=== PATIENT | female | born 1985 | race Caucasian/White ===

== ENCOUNTER 2022-06-04 13:02 | Outpatient (CLI) | payer OTHER, SELFPAY ==
[2022-06-04 13:41] LABS: Yeast Yeast Seen (None Seen)
[2022-06-04 13:42] LABS: Clue Cells >20% Clue Cells Seen (None Seen); Trichomonas No Trichomonas Seen (None Seen)
[2022-06-04 17:29] LABS: Chlamydia DNA Amplified* NOT DETECTED (No Detected); GC DNA Amplified* NOT DETECTED (No Detected)
== END 2022-06-04 13:03 | disposition home or self-care (01) ==
PROVIDERS: PCP Physician Assistant; Visit Provider Registered Nurse
DX: R10.2 Pelvic and perineal pain (principal)
CPT/HCPCS: 0353U; 82378; 86301; 86304; 87086; 87210

== ENCOUNTER 2022-06-04 14:02 | Outpatient (CLI) | payer OTHER, SELFPAY ==
--- NOTE | 2022-06-04 14:00 | CRLHL7_ITS ---
For Patients: As a result of the Century Cures Act, medical imaging exams and procedure reports are released immediately into your electronic medical record. You may view this report before your referring provider. If you have questions, please contact your health care provider. CLINICAL HISTORY: Pelvic pain TECHNIQUE: Real time, singh scale images were acquired of the pelvis using a transabdominal and transvaginal approach. Color Doppler analysis was performed of the ovaries. FINDINGS: The uterus measures 8.7 x 5.2 x 4.7 centimeters endometrial measures 9 millimeters. Right ovary is not seen. Complex left adnexal cystic structure measuring 8.8 x 7.7 x 8.5 centimeters. Blood flow is present. Hypoechoic complex cystic lesion in the right pelvis measuring 4.6 x 3.5 centimeters. IMPRESSION: 1. Large left adnexal complex lesion measuring 8.8 x 7.7 x 8.5 centimeters ovarian tissues not clearly seen. There is normal blood flow present. The right ovary also is not confidently seen. There is a complex hypo hypoechoic lesion in the right adnexa that measures 4.6 x 3.4 x 4.2 centimeters. There is no free fluid. Findings worrisome for possible malignancy. Gynecology consultation is recommended. Dictated by Airam Morocho MD @ 06/04/2022 3:15:36 PM (Electronically Signed)
== END 2022-06-04 14:03 | disposition home or self-care (01) ==
LOC: US 14:02
PROVIDERS: PCP Physician Assistant; Visit Provider Registered Nurse
DX: R10.2 Pelvic and perineal pain (principal); R93.89 Abnormal findings on diagnostic imaging of other specified body structures
CPT/HCPCS: 76830; 76856; 93976

== ENCOUNTER 2022-06-06 15:58 | Outpatient (CLI) | payer OTHER, SELFPAY ==
--- NOTE | 2022-06-06 16:15 | CRLHL7_ITS ---
For Patients: As a result of the Century Cures Act, medical imaging exams and procedure reports are released immediately into your electronic medical record. You may view this report before your referring provider. If you have questions, please contact your health care provider. INDICATION: Complex right ovarian cyst COMPARISON: Ultrasound dated 06/04/2022 TECHNIQUE: MRI of the pelvis, multisequence, multiphasic, without with contrast. 15 cc of Dotrarem administered intravenously. FINDINGS: There is a large left adnexal mass, which measures approximately 8.7 x 7.0 cm, with areas of T2 hyperintensity, however also other areas of T1 hyperintensity that does not suppress on fat saturated images. This most likely represents a large endometrioma. No nodular enhancing components within this lesion. There is mass effect onto the adjacent uterus. There are small foci within the rectovaginal pouch (see image 17, series 6) which may suggest associated endometriosis. The right adnexal mass, more anteriorly measures 4.6 x 4.9 cm. This mass does demonstrate areas of fat suppression, which raises possibility this represents a dermoid rather than an endometrioma. Bone marrow signal is normal. No significant free fluid in the pelvis. The urinary bladder appears unremarkable. No obvious abnormality involving the cervix or vagina. IMPRESSION: 1. Large left adnexal mass measuring 8.7 x 7.0 cm most likely represents a large endometrioma. 2. A smaller right adnexal mass measuring 4.6 x 4.9 cm more likely represents a dermoid rather than an endometrioma. 3. Possible endometriosis evidence by small high-signal intensity T1 foci within the rectovaginal pouch. Dictated by Kermit Rouse MD @ 06/07/2022 9:11:51 PM (Electronically Signed)
== END 2022-06-06 15:59 | disposition home or self-care (01) ==
LOC: MRI 15:59
PROVIDERS: PCP Physician Assistant; Visit Provider Obstetrics & Gynecology
DX: N83.291 Other ovarian cyst, right side (principal); R19.09 Other intra-abdominal and pelvic swelling, mass and lump
CPT/HCPCS: 72197; A9575

== ENCOUNTER 2022-09-16 10:52 | Outpatient (CLI) | payer OTHER, SELFPAY | END 2022-09-16 10:53 | disposition home or self-care (01) | LOC: NFLDREF 09-17 11:14 | PROVIDERS: PCP Physician Assistant; Referring Provider Physician Assistant; Visit Provider Obstetrics & Gynecology | DX: E03.9 Hypothyroidism, unspecified (principal) | CPT/HCPCS: 84439; 84443 ==

== ENCOUNTER 2023-09-03 08:17 | Outpatient (CLI) | payer OTHER, SELFPAY ==
--- OUTSIDE RECORDS SUMMARY | 2023-09-05 09:28 | XMS_ITS | Clinical Summary ---
Author Organization [email or web address] Address [place], [place] [address] Care Team Providers Care Tack Puller Machine Name Role Phone Taryn Wasserman Primary Care Provider [phone] Allergies Active Allergy Reactions Criticality Noted Date Comments Tuberculin Ppd Rash 09/15/2015 History of positive PPD Vancomycin Rash Medium 05/22/2009 Bit by sunday diamond spider Medications Medication Sig Dispensed Refills Start Date End Date Status estradiol 0.1 mg/24 hr SEMIWEEKLY patch Apply 1 Patch on dry, clean, hairless skin. 02/11/2023 Active progesterone micronized (PROMETRIUM) 100 mg capsule Take 100 mg by mouth. 03/17/2023 Active topiramate (TOPAMAX) 25 mg tabletIndications:Bi nge eating Take 25 mg at bedtime for 2 weeks, then increase to 50 mg at bedtime. 180 Tablet 3 04/04/2023 Active levothyroxine (SYNTHROID) 137 mcg tabletIndications:Hy pothyroidism, unspecified type Take 1 Tablet (137 mcg) by mouth before breakfast. 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 Hypothyroidism 06/26/2015 12/14/2020 Vitamin D deficiency 03/05/2010 011 HX of Anemia 10/05/2009 05/06/2010 Hyperthyroidism 06/02/2009 12/14/2020 Encounters Date Type Department Care Team Description 08/22/2023 Lab Requisition [facility] [phone] Libby Robbins MD from Last 3 Months Immunizations Name Administration Dates Next Due COVID-19 vaccine ([employer] 30mcg/0.3mL) PF, MDV 03/21/2020,03/01/2020 Influenza, IIV3 (Age >=3 years) 12/12/2020 Influenza, IIV4 12/13/2021, 9,01/08/2016, 016 Tdap 01/26/2019 Tuberculin (PPD) 09/12/2015,07/28/2012 Family History Medical History Relation Name Comments Good Health Brother 2 x 2 Diabetes Father no meds Thyroid Disease Maternal Aunt Cancer Maternal Grandmother ovarian cancer / hyst Other Mother low BP Relation Name Status Comments Brother 1 Alive x 2 Brother 2 Father Alive Maternal Aunt Maternal Grandfather Alive Maternal Grandmother Alive Mother Alive Paternal Grandfather Paternal Grandmother Social History Tobacco Use Types Packs/Day Years Used Date Smoking Tobacco: Never Smokeless Tobacco: Never Alcohol Use Standard Drinks/Week Comments No 0 (1 standard drink = 0.6 oz pur e alcohol) extrememly rare PHQ-2 Answer Date Recorded PHQ-2 TOTAL SCORE 0 04/04/2023 Social Connections Answer Date Recorded Frequency of Communication with Friends and Fami ly 0 04/04/2023 Financial Resource Strain Answer Date R ecorded Difficulty of Paying Living Expenses 3 04/04/2023 Difficulty of Paying Living Expenses Not on file 04/04/2023 Food Insecurity Answer Date Recorded Worried About Running Out of Food in the Last Ye ar 1 04/04/2023 Transportation Needs Answer Date Record ed Lack of Transportation (Medical) 1 04/04/2023 Housing Stability Answer Date Recorded Unable to Pay for Housing in the Last Year 1 04/04/2023 Sex and Gender Information Value Date Recorded Sex Assigned at Not on file Gender Identity Not on file Sexual Orientation Not on file Obstetrics History Last Filed Vital Signs Vital Sign Reading Time Taken Comments Blood Pressure 119/82 04/04/2023 7:54 AM INFORMATION SECURITY CONSULTANT Pulse 71 04/04/2023 7:54 AM INFORMATION SECURITY CONSULTANT Temperature 36.1 ??C (97 ??F) 03/19/2016 5:17 PM INFORMATION SECURITY CONSULTANT Respiratory Rate 12 01/08/2016 3:21 PM CDT Oxygen Saturation 99% 04/04/2023 7:54 AM INFORMATION SECURITY CONSULTANT Inhaled Oxygen Concentration - - Weight 81.2 kg (179 lb) 04/04/2023 7:54 AM INFORMATION SECURITY CONSULTANT Height 174.6 cm (5' 8.74) 04/04/2023 7:54 AM CS T Body Mass Index 26.63 04/04/2023 7:54 AM INFORMATION SECURITY CONSULTANT Plan of Treatment Health Maintenance Due Date Last Done Comments HIV for age 15-65 12/11/1999 COVID-19 vaccine series ( season) 2022 01/02/2021, 03/21/2020, 03/01/2020 Influenza for age 9-49 11/09/2023 , 12/12/2020, 01/25/2019, Additional history exists BMI (ht and wt on same day) for age 18+ 04/04/2024 04/04/2023, 03/25/2022, 11/08/2019, Additional history exists Depression screening for age 12+ 04/04/2024 04/04/2023, 03/25/2022, 12/14/2020, Additional history exists Pap test for age 21-65 08/20/2028 , 08/21/2023, 09/01/2018, Additional history exists Tetanus booster 01/26/2029 01/26/2019, 07/09/2007 Hepatitis C screening for age 18-79 Completed 12/30/2015 Tdap Completed 01/26/2019 Pneumococcal series for age 6-64 Aged Out No longer eligible based on patient's age to complete this topic Procedures Procedure Name Priority Date/Time Associated Diagnosis Comments LAB TRACKING EVENT Routine 08/21/2023 3: 00 PM CDT BALLET PROFESSOR THIN PREP PAP SCREEN IMAGED Routine 08/21/2023 3:00 PM CDT HPV THIN PREP Routine 08/21/2023 3:00 PM CDT ACUTE HEPATITIS PANEL Routine 12/30/2015 10:53 AM CDT Elevated LFTs from Last 3 Months or Most Recently Relevant to Health Maintenance Results * LAB TRACKING EVENT (08/21/2023 3:00 PM CDT) Other (Other) Client Collect / Unknown 08/21/2023 3:00 PM CDT 08/22/2023 4:29 PM CDT Libby Robbins MD LAB BILL O NLY [facility] [address] [place] [address], * BALLET PROFESSOR THIN PREP PAP SCREEN IMAGED (08/21/2023 3:00 PM CDT) Case Report Gynecologic Cytology Report ? Case: [id number] ? Authorizing Provider: ??Libby Robbins ??Collected: ? 08/21/2023 1500 ? M, MD ? Ordering Location: ? [facility] ?Received: ?08/25/2023 1254 ? First Screen: ?Steph Dimas ? Specimen: ?BALLET PROFESSOR ThinPrep Vial Screening, Cervical ? 09/02/2023 11:47 AM CDT [facility] INTERPRETATION/ RESULT NEGATIVE FOR INTRAEPITHELIAL LESION OR MALIGNANCY (NIL) (none) 09/02/2023 11:47 AM T [facility] NISM(S) Fungal organisms morphologically consistent with Saida species 09/02/2023 11:47 AM CDT [facility] SPECIMEN ADEQUACY Satisfactory for evaluation Endocervical component present 09/02/2023 11:47 AM CDT [facility] HPV REQUEST HPV and PAP 09/02/2023 11:47 AM T [facility] Date of LMP 09/02/2023 11:47 AM T [facility] Comment:unknown Last Pap Date 09/01/2018 09/02/2023 11:47 AM CDT [facility] Last Pap Result NIL 11:47 AM CDT [facility] Abnormal Pap or [place] Bx in last 5 years No 09/02/2023 11:47 AM CDT [facility] Menstrual Status Irregular Periods 09/02/2023 11:47 AM CDT [facility] [place] Bx Done Today No 09/02/2023 11:47 AM T [facility] Additional Information 09/02/2023 11:47 AM T [facility] Comment: Interpreted at [facility] - [address], [place] [address] Automated Review Successful 09/02/2023 11:47 AM T [facility] Comment:Specimen processed s uccessfully by automated fretted instruments inspector device, ThinPrep Imaging System, [employer] ANCILLARY TESTING BALLET PROFESSOR HPV Ordered, Please see separate report 09/02/2023 11:47 AM CDT [facility] Note The pap test is a screening technique, not a diagnostic procedure. It is used primarily to screen for squamous cancers and precursor lesions. Published studies have shown that it is subject to both false negative and false positive results. The pap test should not be used as the sole means to diagnose or exclude pre-malignant and malignant lesions. 09/02/2023 11:47 AM CDT [facility] Other (Cervical) 08/21/2023 3:00 PM CDT 08/25/2023 12:54 PM CDT Libby Robbins MD PATHOLOGY/ CYTOLOGY Performing Organization Address [facility] Co de Phone Number [facility] [address] [place] [address] * HPV HIGH RISK (08/21/2023 3:00 PM CDT) TYPE 16 Negative Negative 08/27/2023 6:04 AM CDT [facility] TYPE 18 Negative Negative 08/27/2023 6:04 AM CDT [facility] OTHER HIGH RISK TYPES Negative Negative 08/27/2023 6:04 AM CDT [facility] Other (Cervical) 08/21/2023 3:00 PM CDT 08/25/2023 12:54 PM CDT Narrative [facility] - 08/27/2023 6:04 AM CDT HPV types 16, 18, 31, 33, 35, 39, 45, 51, 52, 56, 58, 59, 66 and 68 DNA were undetectable or below the pre-set threshold. Methodology: Umm Maxwell 4800 HPV Test Libby Robbins MD MICROBIOLO GY Performing Organization Address [facility] Co de Phone Number [facility] [address] [place] [address], * ACUTE HEPATITIS PANEL (12/30/2015 10:53 AM CDT) HEPATITIS C ANTIBODY Non-Reactive Non-Reactive 12/31/2015 1:38 PM CDT [facility] IGM ANTI HAV Non-Reactive Non-Reactive 12/31/19 16 1:38 PM CDT [facility] HBSAG Nonreactive Nonreactive 12/31/2015 1:38 PM CDT [facility] IGM ANTI HBC Non-Reactive Non-Reactive 12/31/19 16 1:38 PM CDT [facility] Blood BLOOD SPECIMEN / Unknown Venipuncture / Unknown 12/30/2015 10:53 AM CDT 12/30/2015 2:45 PM CDT Narrative [facility] - 12/31/2015 1:38 PM CDT Anti-HBc IgM not detected. Does not exclude the possibility of exposure to or infection with HBV. Hugo Vieira MD SEND OUTS [facility] [address] [place] [address], from Last 3 Months or Most Recently Relevant to Health Maintenance Care Teams Tack Puller Machine Relationship Specialty Start Date End Date Taryn W[place]erman [place] [address] [place] [address] PCP - General Physician Secretary Bookkeeper 04/04/23
== END 2023-09-03 08:18 | disposition home or self-care (01) ==
LOC: NFLDREF 09-05 09:25
PROVIDERS: PCP Physician Assistant; Referring Provider Physician Assistant; Visit Provider Obstetrics & Gynecology
DX: Z00.00 Encounter for general adult medical examination without abnormal findings (principal); E89.40 Asymptomatic postprocedural ovarian failure; E03.9 Hypothyroidism, unspecified; Z13.1 Encounter for screening for diabetes mellitus; Z13.6 Encounter for screening for cardiovascular disorders; Z13.89 Encounter for screening for other disorder
CPT/HCPCS: 80061; 82306; 84439; 84443

== ENCOUNTER 2025-01-11 13:15 | Outpatient (CLI) | payer OTHER, SELFPAY | END 2025-01-11 13:16 | disposition home or self-care (01) | LOC: NFLDREF 01-14 11:38 | PROVIDERS: PCP Physician Assistant; Referring Provider Physician Assistant; Visit Provider Obstetrics & Gynecology | DX: Z00.00 Encounter for general adult medical examination without abnormal findings (principal) | CPT/HCPCS: 80053; 80061; 84443 ==